=== PATIENT | male | born 1995 | race Caucasian/White ===

== ENCOUNTER 2017-08-05 20:07 | Emergency (ER) | payer OTHER ==
[~2017-08-05] VITALS: Ht 177.8 cm; Wt 77.7 kg
[2017-08-05 20:16] VITALS: BP 148/92; PULSE 86; TEMP 37.2; O2SAT 96; Ht 177.8 cm; Wt 77.7 kg
[2017-08-05] MEDS ORDERED: XYLOCAINE 1%/SOD BICARB 20 ML VIAL INFIL ONE (20:45)
[2017-08-05] MEDS ORDERED: OXYC1TAB3 PO (21:17)
--- NOTE | 2017-08-05 21:18 | DIAGNOSTIC IMAGING REPORT ---
L ANKLE MIN 3 VIEWS ROUTINE CLINICAL HISTORY: L ankle injury trauma. Pain. COMPARISON: None. DISCUSSION: Transverse fracture distal fibular shaft. Cortical fracture medial malleolus. Ankle mortise is aligned anatomically. Moderate soft tissue edema IMPRESSION: Bimalleolar fracture left ankle. The above report was generated using voice recognition software. It may contain grammatical, syntax or spelling errors. Electronically signed by: Sourav Clement M.D. 08/05/2017 9:17 PM Dictated Date/Time: 08/05/2017 9:16 PM
[2017-08-05] MEDS ORDERED: OXYCODONE IR HOME PACK PO ONE (21:30)
--- NOTE | 2017-08-05 22:29 | EMERGENCY ROOM VISIT NOTE ---
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 The patient reports that an opponent stepped on his ankle, and the patient felt a pop. The patient reports significant pain with ambulation. An inflatable splint and crutches were applied, and the patient was brought here for further evaluation. The patient currently rates his discomfort a 6 out of 10 on initial exam. He denies any pain extending into the leg or knee. He denies any paresthesias or numbness of the left foot or toes. He denies any prior history of left ankle injuries. 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 Alert and oriented X 3 with positive affect. Patient appears in mild discomfort from pain. HEENT: Normocephalic, atraumatic. Pupils equal, round and reactive. NECK: Full active range of motion without discomfort. MUSCULOSKELETAL: Examination of the left ankle shows diffuse ankle edema with abrasions over the lateral malleolar region. Patient has generalized tenderness to palpation about the ankle. No focal tenderness through the Achilles tendon or proximal fibular region. Pedal pulses are intact. INTEGUMENTARY: No rash or other significant dermatologic conditions noted. NEUROLOGIC: No focal neurologic deficits noted. Left foot and toes are sensory intact. Medical Decision & Procedures ER Provider Diagnostic Interpretation: My interpretation of left ankle x-rays confirms a bimalleolar ankle fracture without any dislocation. Radiologist report is as follows: L ANKLE MIN 3 VIEWS ROUTINE CLINICAL HISTORY: L ankle injury trauma. Pain. COMPARISON: None. DISCUSSION: Transverse fracture distal fibular shaft. Cortical fracture medial malleolus. Ankle mortise is aligned anatomically. Moderate soft tissue edema IMPRESSION: Bimalleolar fracture left ankle. Medications Administered Medications (Trade) Dose Ordered Sig/Derik Route Start Time Stop Time Status Last Admin Dose Admin Oxycodone HCl (Roxicodone Immediate Rel 5MG Home Pack) 1 [facility] UD ONCE PO 08/05/17 21:30 08/05/17 21:31 DC 08/05/17 21:30 1 HOMEPACK ED Course Patient history and physical exam were performed. Nurse's notes were reviewed. Vital signs were reviewed, with an initial blood pressure 148/92. The patient initially refused any analgesics. X-rays of the left ankle confirms a bimalleolar ankle fracture. Upon reassessment, the patient did request something for pain, and was administered OxyIR 5 mg. A posterior Ortho-Glass splint was applied. Neurovascular check after splint placement was normal. The patient also was fitted with crutches. He was instructed to remain nonweightbearing. Ibuprofen and Tylenol for baseline pain relief. The patient was provided a home pack and prescription for OxyIR as needed for breakthrough pain. The patient will follow-up with [facility] for further management. The patient was happy with plan of care, and rated his discomfort a 5 out of 10 at the time of discharge. Medical Decision [place] Drug Monitoring Program Search Results: patient reviewed within database, no issues identified Medication Reconcilliation Current Medication List: was personally reviewed by la Blood Pressure Screening Patient's blood pressure: Elevated blood pressure Blood pressure disposition: Elevated BP felt to be situational Impression Primary Impression: Bimalleolar fracture of left ankle Additional Impression: Sports injury Departure Information Dispostion Home / Self-Care Condition FAIR Prescriptions Oxycodone Ir (Roxicodone Ir) 5 Mg Tab 1-2 TAB PO Q4H Y for Pain, #15 TAB For Initial Treatment Prov: Dominic Blake PA 08/05/17 Referrals Phil Dobbs M.D. Forms HOME CARE DOCUMENTATION FORM, IMPORTANT VISIT INFORMATION Patient Instructions [employer] Additional Instructions Ice and elevate ankle for swelling and pain. Ibuprofen 800 mg and/or Tylenol 1000 mg every 8 hours. You may also alternate these medications for more effective pain relief: Ibuprofen --4 HRS--> Tylenol --4 HRS--> ibuprofen --4 HRS--> Tylenol .... OxyIR if needed for additional pain relief. Do not drink or drive while taking OxyIR. Keep splint dry. Use crutches - no weight on splint. Follow-up with [facility] for further evaluation and treatment. Problem Qualifiers Primary Impression: Bimalleolar fracture of left ankle Encounter type: initial encounter Fracture type: closed Qualified Codes: S82.842A - Displaced bimalleolar fracture of left lower leg, initial encounter for closed fracture
[2017-08-08] MEDS ORDERED: OXYC1TAB3 PO (11:38)
== END 2017-08-05 21:52 | disposition home or self-care (01) ==
LOC: C.EDB 20:09 → C.EDD 21:52
DX: S82.842A Displaced bimalleolar fracture of left lower leg, initial encounter for closed fracture (principal); W50.0XXA Accidental hit or strike by another person, initial encounter

== ENCOUNTER → 2017-08-08 | Day surgery (SDC) | payer OTHER ==
[2017-08-07 15:37] VITALS: Ht 177.8 cm; Wt 75.0 kg
[~2017-08-08] VITALS: Ht 177.8 cm; Wt 75.0 kg
[~2017-08-08] MED LIST: ATROPINE SULFATE 0.1 MG/ML 5ML SYR IV PRN; CEFAZOLIN 2000MG IV PUSH 15 ML IV SCH; CEFTRIAXONE SOD 1 GM VIAL ONE; CEFTRIAXONE SOD 2 GM VIAL IV ONE; DEXAMETHASONE SOD INJ 4 MG/ML VIAL ONE; EpHEDrine SULFATE INJ 50 MG/ML AMP IV PRN; FENTANYL CITRATE INJ 50 MCG/1 ML 2 ML VIAL IV PRN; FENTANYL CITRATE INJ 50 MCG/1 ML 2 ML VIAL ONE; HYDROmorphone INJ 1 MG/ML SYR IV PRN; LACTATED RINGER'S 1000ML 1,000 ML IV SCH; LIDOCAINE HCL 2% 2 ML VIAL (20MG/ML) ONE; MIDAZOLAM HCL 1 MG/ML 2ML VIAL ONE; ONDANSETRON INJ 2 MG/ML 2 ML VIAL IV PRN; ONDANSETRON INJ 2 MG/ML 2 ML VIAL ONE; OXYC1TAB3 PO; OXYCODONE/ACETAMINOPHEN 5-325 TAB PO PRN; PROPOFOL IV EMULSION 10 MG/ML 20 ML VIAL IV ONE; ROPIVACAINE 0.5% 5 MG/ML 30 ML VIAL ONE; SODIUM CHLORIDE 0.9% 1000ML 1,000 ML IV SCH; SUCCINYLCHOLINE CHLORIDE 20 MG/ML 10 ML VIAL IV ONE
--- NOTE | 2017-08-08 13:16 | History & Physical Bridge Note ---
H&P Re-Evaluation Bridge Note: I have examined the patient, reviewed the History & Physical and in the interval since the performance of the History & Physical I have noted the following changes of clinical significance: No changes noted
--- NOTE | 2017-08-08 13:17 | Discharge Instructions ---
Discharge Instructions Date of Service Aug 08, 2017. Visit Reason for Visit: Left Bimalleolar Ankle Fracture Discharge Discharge Diagnosis / Problem: same Discharge Goals Goal(s): Decrease discomfort, Improve function Medications Stopped Medications Name(s): na Restart Stopped Medication(s): use scripts as directed. Activity Recommendations Activity Limitations: as noted below Lifting Limitations: until after follow-up appointment Exercise/Sports Limitations: until after follow-up appointment May Resume Sexual Activity: after follow-up appointment Shower/Bathe: keep incision dry Driving or Machine Use: Weightbearing Status: Left non-weightbearing Anesthesia . Post Anesthesia Instructions: If you have had General Anesthesia or IV Sedation: * Do not drive today. * Resume driving when surgeon permits. * Do not make important decisions or sign legal documents today. * Call surgeon for: 1. Temperature elevations greater than 101 degrees F. 2. Uncontrollable pain. 3. Excessive bleeding. 4. Persistent nausea and vomiting. 5. Medication intolerance (nausea, vomiting or rash). * For nausea and vomiting use only clear liquids such as: tea, soda, bouillon until nausea subsides, then gradually increase diet as tolerated. * If you have any concerns or questions, call your surgeon's office. If physician is unavailable and it is an emergency, call 911 or go to the nearest emergency room. . Instructions / Follow-Up Instructions / Follow-Up DIET: * Resume previous diet. MEDICATIONS: * Please take your prescriptions as instructed at your pre-op appointment and/ or see medication discharge instructions listed above. * If concerns develop, call your physician's office at . SPECIAL CARE INSTRUCTIONS: * Ice/Elevate as instructed. * Keep dressing clean, dry, intact. * Your surgical extremity may be discolored due to prepping agents used on the skin. A bluish-green tint is a normal variant and should not cause alarm. Call your doctor at [phone] if: * Temperature above 101 degrees * Pain not relieved by pain medicine ordered * There is increased drainage or redness from any incision * You have any unanswered questions, problems or concerns. FOLLOW UP VISIT: * If not already scheduled, please call the office at to schedule a follow-up appointment. Diet Recommendations Recommended Home Diet: no limitations Procedures Procedures Performed: see op note Pending Studies Studies pending at discharge: no Medical Emergencies . Who to Call and When: Medical Emergencies: If at any time you feel your situation is an emergency, please call 911 immediately. . Non-Emergent Contact Non-Emergency issues call your: Specialist Call Non-Emergent contact if: wound has increased drainage, wound has increased redness, wound has increased pain . . "Provider Documentation" section prepared by Phil Dobbs. .
--- NOTE | 2017-08-08 15:23 | [facility] Post Operative Brief Note ---
Immediate Operative Summary Operative Date Aug 08, 2017. Pre-Operative Diagnosis Left Bimalleolar Ankle Fracture Post-Operative Diagnosis same as pre op Procedure(s) Performed Left Ankle Bimalleolar Open Reduction Internal Fixation Surgeon Dr [employer] Social Worker Surgeon(s) Dr Rodger Esposito MD and JT Patel Estimated Blood Loss Trace Findings Consistent with Post-Op Diagnosis Fluids (cc crystalloids) 1600cc Specimens none Drains None Anesthesia Type General Regional Complication(s) none Disposition Disposition: Recovery Room / PACU
--- NOTE | 2017-08-08 15:35 | OPERATIVE REPORT ---
DATE OF OPERATION: 08/08/2017 SURGEON: Phil Dobbs MD PRODUCT DEVELOPMENT WORKER: Vaibhav. SECOND PRODUCT DEVELOPMENT WORKER: Sherman Flores PA-C PREOPERATIVE DIAGNOSES: Bimalleolar articular ankle fracture, vertical shear type injury medially, and a transverse fracture laterally. DICTATION ENDS HERE I attest to the content of the Intraoperative Record and any orders documented therein. Any exception s are noted below.
--- NOTE | 2017-08-08 15:36 | [facility] Operative Report ---
Operative Report Operative Date Aug 08, 2017. Pre-Operative Diagnosis Left Bimalleolar Ankle Fracture Post-Operative Diagnosis same as pre op Procedure(s) Performed Left Ankle Bimalleolar Open Reduction Internal Fixation Surgeon Dr [employer] Surgeon(s) Dr Rodger Esposito MD and JT Patel Estimated Blood Loss Trace Findings Bimalleolar fracture left ankle Fluids 1600cc Specimens none Drains None Anesthesia Type General Regional Complication(s) none Disposition Recovery Room / PACU Indications This 22-year-old white male presented the office with complaints of left ankle pain after being injured during a soccer game on Monday. Radiographic imaging was obtained that confirmed a bimalleolar fracture. He elected to proceed with surgical intervention after being educated about potential risks and outcomes. Description of Procedure Patient was administered a regional block and then taken to the operating room where he was given general anesthesia. He was prepped and draped in usual sterile fashion. Please see Dr. oDbbs's operative report for specifics of the procedure. I was present for the entire case from initial patient positioning through final wound closure. Assistance was provided in tissue retraction, hemostasis, hardware placement, final wound closure, and final splinting. Patient was taken to the recovery room in satisfactory condition. I attest to the content of the Intraoperative Record and any orders documented therein. Any exceptions are noted below.
--- NOTE | 2017-08-08 15:51 | OPERATIVE REPORT ---
DATE OF OPERATION: 08/08/2017 SURGEON: Dr. Phil Dobbs. CROP QUANTITATIVE GENETICIST: Vaibhav. SECOND CROP QUANTITATIVE GENETICIST: Sherman Flores PA-C. PREOPERATIVE DIAGNOSES: Bimalleolar ankle fracture with articular displacement medially with vertical shear type fracture pattern medially and transverse fracture pattern laterally. POSTOPERATIVE DIAGNOSES: Same. OPERATION PERFORMED: Open reduction and internal fixation vertical shear medial malleolar distal tibia fracture and percutaneous intramedullary fixation of the fibular fracture. 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 If possible, these leal were going to be tried to be avoided with the procedure. There was no major prohibitive swelling at this point in time. There was no obvious infection of any of the scrape leal from the slide tackle . DESCRIPTION OF PROCEDURE: The patient appropriately identified, site verified, consent verified, 2 grams of Ancef confirmed as being given. The left lower extremity was prepped and draped in usual routine fashion. Tourniquet inflated to 275 mmHg after exsanguination of limb with a rubber Esmarch bandage for a total of 67 minutes. Medial approach anteromedially of the distal tibia was made. Care was taken to protect the saphenous vein and nerve. The joint was then opened and the subperiosteal dissection of the fracture identified. It was then curetted, irrigated slightly and then reduced with a reduction clamp. Two K-wires were then placed. Following verification of excellent positioning of the K-wires, a 4.7 Acutrak screw 40 mm in length was placed with an excellent purchase. An antiglide plate was then placed over the proximal K-wire and 2 cortical screws were placed measuring 30 and 36 mm. An additional screw was then placed after the last K-wire was taken out and that was 34 mm. Excellent purchase was obtained and all the fracture was anatomic. Attention was then turned towards the lateral side where a small incision was made 1 cm distal to the tip of the fibula and blunt dissection carried down to the fibula. A guidewire was then passed. It was then drilled and then the cortical area opened up for a 5.5 Acutrak screw, which was a 60-mm screw. The screw was then passed without difficulty. We had an excellent purchase. It was verified to be in plane in all 3 views. The wound was then irrigated and then closed with 2-0 plain and 3-0 Prolene. The medial wound was then closed with 2-0 Vicryl for the periosteum, 2-0 plain for the subcutaneous layer and a 3-0 Prolene for the skin with horizontal mattress. Wounds were then appropriately dressed. Estimated blood loss was trace. Crystalloid was 1600 mL. DVT prophylaxis per protocol. SUMMARY OF IMPLANTS: 1/3 tubular plate, 3 cortical screws measuring in length from 30-36 mm, one 4.7 Acutrak screw 40 mm medially, laterally was 1 intramedullary 5.5 60-mm long screw. I attest to the content of the Intraoperative Record and any orders documented therein. Any exceptions are noted below. MTDD
[2017-08-08 16:32] VITALS: TEMP 36.4
--- NOTE | 2017-08-08 16:44 | Anesthesia Progress Nt - [facility] ---
Anesthesia Post Op Note Date & Time Aug 08, 2017 at 16:44 Vital Signs Pain Intensity: 0 Vital Signs Past 12 Hours Date Time Temp Pulse Resp B/P (MAP) Pulse Ox O2 Delivery O2 Flow Rate FiO2 08/08/17 16:32 36.4 64 20 143/83 (103) 98 Room Air 08/08/17 16:28 67 17 98 08/08/17 16:28 68 17 08/08/17 16:26 137/89 08/08/17 16:26 36.5 62 20 137/89 98 Room Air 08/08/17 16:23 67 17 99 08/08/17 16:23 68 17 08/08/17 16:22 67 20 99 08/08/17 16:22 70 20 08/08/17 16:21 134/87 08/08/17 16:17 64 14 08/08/17 16:17 63 14 97 08/08/17 16:16 137/90 08/08/17 16:12 65 15 08/08/17 16:12 65 15 100 08/08/17 16:11 128/75 08/08/17 16:07 55 13 99 08/08/17 16:07 56 13 08/08/17 16:06 129/76 08/08/17 16:02 76 17 08/08/17 16:02 76 17 100 08/08/17 16:01 134/89 08/08/17 15:59 57 11 100 08/08/17 15:59 56 11 08/08/17 15:56 132/78 08/08/17 15:54 54 9 100 08/08/17 15:54 53 9 08/08/17 15:51 128/73 08/08/17 15:49 55 10 99 08/08/17 15:49 56 10 08/08/17 15:46 128/73 08/08/17 15:44 55 12 100 08/08/17 15:44 55 12 08/08/17 15:41 140/72 08/08/17 15:39 55 10 99 08/08/17 15:39 55 10 08/08/17 15:38 67 17 100 08/08/17 15:38 67 17 08/08/17 15:36 134/76 08/08/17 15:33 87 16 99 08/08/17 15:33 86 16 08/08/17 15:31 131/74 08/08/17 15:29 126/66 08/08/17 15:28 36.3 77 16 126/66 99 Mask 8 08/08/17 13:39 0 08/08/17 13:39 0 08/08/17 13:37 134/90 08/08/17 13:37 134/90 08/08/17 13:34 71 28 100 08/08/17 13:34 71 08/08/17 13:34 71 28 100 08/08/17 13:34 71 08/08/17 13:31 121/99 08/08/17 13:31 121/99 08/08/17 13:29 68 08/08/17 13:29 68 19 100 08/08/17 13:29 68 19 100 08/08/17 13:29 68 08/08/17 13:26 138/89 08/08/17 13:26 138/89 08/08/17 13:25 62 16 146/103 (117) 100 Mask 4 08/08/17 13:24 71 08/08/17 13:24 71 08/08/17 13:24 85 0 95 08/08/17 13:24 85 0 95 08/08/17 13:19 56 0 08/08/17 13:19 56 0 08/08/17 13:14 59 0 08/08/17 13:14 59 0 08/08/17 13:09 54 0 08/08/17 13:09 54 0 08/08/17 13:04 68 0 08/08/17 13:04 68 0 08/08/17 12:59 68 0 08/08/17 12:59 68 0 08/08/17 12:54 60 0 08/08/17 12:54 60 0 08/08/17 12:49 60 0 08/08/17 12:49 60 0 08/08/17 12:44 67 0 08/08/17 12:44 67 0 08/08/17 12:39 61 0 08/08/17 12:39 61 0 08/08/17 12:34 62 0 08/08/17 12:34 62 0 08/08/17 12:29 62 0 08/08/17 12:29 62 0 08/08/17 12:24 58 0 3/27/18 12:24 58 0 08/08/17 12:19 60 0 08/08/17 12:19 60 0 08/08/17 12:14 69 0 08/08/17 12:14 69 0 08/08/17 12:09 66 0 08/08/17 12:09 66 0 08/08/17 11:39 36.9 75 18 145/95 (112) 97 Room Air Notes Mental Status: alert / awake / arousable, participated in evaluation Pt Amnestic to Procedure: Yes Nausea / Vomiting: adequately controlled Pain: adequately controlled Airway Patency, RR, SpO2: stable & adequate BP & HR: stable & adequate Hydration State: stable & adequate Anesthetic Complications: no major complications apparent
[2017-08-08 16:52] VITALS: BP 136/84; PULSE 60; O2SAT 99
== END | disposition home or self-care (01) ==
LOC: X.SURG 11:24
PROVIDERS: ATTEND Physical Medicine & Rehabilitation Sports Medicine
DX: S82.842A Displaced bimalleolar fracture of left lower leg, initial encounter for closed fracture (principal); W03.XXXA Other fall on same level due to collision with another person, initial encounter; Y93.66 Activity, soccer

== ENCOUNTER → 2017-09-04 | Outpatient (CLI) | payer OTHER ==
[~2017-09-04] MED LIST changes: -ATROPINE SULFATE 0.1 MG/ML 5ML SYR IV PRN; -CEFAZOLIN 2000MG IV PUSH 15 ML IV SCH; -CEFTRIAXONE SOD 1 GM VIAL ONE; -CEFTRIAXONE SOD 2 GM VIAL IV ONE; -DEXAMETHASONE SOD INJ 4 MG/ML VIAL ONE; -EpHEDrine SULFATE INJ 50 MG/ML AMP IV PRN; -FENTANYL CITRATE INJ 50 MCG/1 ML 2 ML VIAL IV PRN; -FENTANYL CITRATE INJ 50 MCG/1 ML 2 ML VIAL ONE; -HYDROmorphone INJ 1 MG/ML SYR IV PRN; -LACTATED RINGER'S 1000ML 1,000 ML IV SCH; -LIDOCAINE HCL 2% 2 ML VIAL (20MG/ML) ONE; -MIDAZOLAM HCL 1 MG/ML 2ML VIAL ONE; -ONDANSETRON INJ 2 MG/ML 2 ML VIAL IV PRN; -ONDANSETRON INJ 2 MG/ML 2 ML VIAL ONE; -OXYCODONE/ACETAMINOPHEN 5-325 TAB PO PRN; -PROPOFOL IV EMULSION 10 MG/ML 20 ML VIAL IV ONE; -ROPIVACAINE 0.5% 5 MG/ML 30 ML VIAL ONE; -SODIUM CHLORIDE 0.9% 1000ML 1,000 ML IV SCH; -SUCCINYLCHOLINE CHLORIDE 20 MG/ML 10 ML VIAL IV ONE
== END ==
LOC: C.RDSM 13:00
PROVIDERS: ATTEND Physical Medicine & Rehabilitation Sports Medicine
DX: S82.842A Displaced bimalleolar fracture of left lower leg, initial encounter for closed fracture (principal); X58.XXXA Exposure to other specified factors, initial encounter